=== PATIENT | male | born 1955 | race Two or more races ===

== ENCOUNTER 2019-01-19 05:00 | Emergency (ER) | payer MEDICAID ==
[~2019-01-19] VITALS: Ht 180.3 cm; Wt 84.1 kg
[2019-01-19 06:25] LABS: Basophils # (auto) 0 uL; Basophils % (auto) 0.3 % (0.0-2.0); Eosinophils # (auto) 0 uL; Eosinophils % (auto) 0.2 % (0.0-7.0); Hematocrit 43.4 % (41.0-53.0); Hemoglobin 15.2 g/dL (13.5-17.5); Lymphocytes # (auto) 1.5 uL; Lymphocytes % (auto) 19.4 % (10.0-50.0); Mean Corpuscular Hemoglobin 29.5 pg (28.0-32.0); Mean Corpuscular Hgb Conc. 34.9 g/dL (32.0-36.0); Mean Corpuscular Volume 84.5 fL (80.0-100.0); Monocytes # (auto) 0.6 uL; Monocytes % (auto) 7.8 % (0.0-12.0); Neutrophils # (auto) 5.5 uL; Neutrophils % (auto) 72.3 % (37.0-80.0); Nucleated Red Blood Cells % 0.1 %; Platelet Count (auto) 137 10^3/uL (140-450); Red Blood Cells 5.13 10^6/uL (4.5-5.90); Red Cell Distribution Width 14.8 % (11.8-14.3); White Blood Cell 7.6 10^3/uL (4.4-10.8)
[2019-01-19 06:49] LABS: Albumin 4.5 g/dL (3.4-5.0); Anion Gap 9 (5-15); Blood Urea Nitrogen 18 mg/dL (7-18); Calcium 9.1 mg/dL (8.5-10.1); Carbon Dioxide 26 mmol/L (21-32); Chloride 99 mmol/L (98-107); Glucose 151 mg/dL (74-106); Potassium 3.7 mmol/L (3.5-5.1); Sodium 134 mmol/L (136-145)
[2019-01-19 06:52] LABS: Alanine Aminotransferase 32 U/L (16-61); Aspartate Aminotransferase 44 U/L (15-37); GFR African American 97 mL/min; GFR Non-African American 80 mL/min
[2019-01-19 06:57] LABS: Alkaline Phosphatase 90 U/L (45-117); Total Protein 8.8 g/dL (6.4-8.2)
[2019-01-19] MEDS ORDERED: ONDANSETRON HCL 4 MG/2 ML VIAL IV ONE ×3 (08:45→20:15)
[2019-01-19] MEDS ORDERED: MORPHINE SULFATE 4 MG/ML SYR/VIAL IV ONE ×2 (08:45→20:15)
[2019-01-19 11:40] LABS: Urine Amorphous Crystal FEW /hpf (None Seen); Urine Bacteria FEW /hpf (None Seen); Urine Blood Negative /uL (Negative); Urine Specific Gravity 1.012 (1.001-1.035); Urine WBC 28 /hpf (0 - 3)
[2019-01-19] MEDS ORDERED: GADOPENTETATE DIMEGLUMINE (10MMOL/20 ML) VIAL IV ONE (13:19)
[2019-01-19] MEDS ORDERED: HYDROmorphone HCL 2 MG/ML VL IV ONE (13:30)
[2019-01-19 20:12] VITALS: BP 148/83
[2019-01-19] MEDS ORDERED: ACETAMINOPHEN 325 MG TAB PO ONE (20:15)
== END 2019-01-19 20:37 | disposition short-term general hospital (02) ==
LOC: ER 05:00
DX: I16.0 Hypertensive urgency (principal); E11.9 Type 2 diabetes mellitus without complications; I10 Essential (primary) hypertension
CPT/HCPCS: 36415; 70450; 70553; 71045; 80053; 81001; 82962; 83880; 84484; 85025; 93005; 94761; 96374; 96375; 96376; 99285; A9579; J1170; J2270; J2405